=== PATIENT | male | born 1960 | race Hispanic/Latino ===

== ENCOUNTER 2021-05-29 08:17 | Day surgery (SDC) | payer MEDICARE ==
[2021-05-28 09:42] VITALS: BMI 25.8
[2021-05-29] MEDS ORDERED: Lidocaine 1% MPF 2 ML VIAL ONE (08:58)
[2021-05-29] MEDS ORDERED: PROPOFOL 40 ML ONE (09:19)
[2021-05-29] MEDS ORDERED: Lidocaine 1% PF 5 ML VIAL ONE (10:14)
== END 2021-05-29 10:45 | disposition home or self-care (01) ==
LOC: CSHSDC 08:17
PROVIDERS: ATTEND Internal Medicine Gastroenterology
PROC: 0DJD8ZZ Inspection of Lower Intestinal Tract, Via Natural or Artificial Opening Endoscopic (ICD-10-PCS; principal; 2021-05-29)
DX: Z08 Encounter for follow-up examination after completed treatment for malignant neoplasm (principal); Z12.11 Encounter for screening for malignant neoplasm of colon; K62.89 Other specified diseases of anus and rectum; Z85.038 Personal history of other malignant neoplasm of large intestine; E11.9 Type 2 diabetes mellitus without complications; I10 Essential (primary) hypertension; D64.9 Anemia, unspecified
CPT/HCPCS: 82962; G0105; 36416; J2704